=== PATIENT | female | born 1990 | race Caucasian/White ===

== ENCOUNTER 2017-01-26 00:03 | Emergency (ER) | payer OTHER ==
[2017-01-26 01:56] VITALS: BP 112/72
== END 2017-01-26 01:56 | disposition home or self-care (01) ==
LOC: ED 00:03
DX: S91.211A Laceration without foreign body of right great toe with damage to nail, initial encounter (principal); X58.XXXA Exposure to other specified factors, initial encounter; Y93.89 Activity, other specified; Y92.89 Other specified places as the place of occurrence of the external cause; Y99.8 Other external cause status
CPT/HCPCS: J2001

== ENCOUNTER 2017-08-16 22:21 | Emergency (ER) | payer OTHER ==
[~2017-08-16] VITALS: Ht 157.5 cm; Wt 55.8 kg
[2017-08-16 23:52] VITALS: Ht 157.5 cm; Wt 55.8 kg
[2017-08-17 02:27] VITALS: BP 101/68
== END 2017-08-17 02:27 | disposition home or self-care (01) ==
LOC: ED 22:21
DX: B02.9 Zoster without complications (principal); H92.01 Otalgia, right ear